=== PATIENT | male | born 1995 | race Two or more races ===

== ENCOUNTER 2019-03-20 21:30 | Inpatient (IN) | payer MEDICAID ==
[~2019-03-20] VITALS: Ht 182.9 cm; Wt 97.7 kg
[2019-03-20 21:30] VITALS: BP 136/74
--- NOTE | 2019-03-20 21:41 | Emergency Room Report ---
History of Present Illness General Chief Complaint: Overdose Source: EMS Present Illness HPI Patient is a 24-year-old male brought in by paramedics after increased altered mental status. Patient had reportedly been using crystal meth earlier in the day. He had additionally take an unknown amount of Zyprexa. Patient had reportedly had a bottle of Zyprexa which was now empty. This had been filled approximately 1 month ago. Per patient's mom patient had been noncompliant with this medication. Allergies: Coded Allergies: No Known Allergies (Unverified , 03/20/19) Nursing Documentation-[facility] History Of Psychiatric Problem: Yes Review of Systems All Other Systems: limited - Limited by altered mental status Physical Exam Vital Signs Date Time Temp Pulse Resp B/P (MAP) Pulse Ox O2 Delivery O2 Flow Rate FiO2 03/20/19 21:23 99.0 120 18 136/74 (94) 98 Room Air Sp02 EP Interpretation: reviewed, normal General Appearance: normal inspection, obese, other - Somnolent Head: atraumatic Eyes: bilateral eye PERRL ENT: other - Gag reflex present Neck: normal inspection, full range of motion, supple, no bony tend Respiratory: normal inspection, lungs clear, normal breath sounds, no respiratory distress, no retraction, no wheezing Cardiovascular #1: regular rate, rhythm, no edema Gastrointestinal: normal inspection, normal bowel sounds, non tender, soft, no guarding, no hernia Genitourinary: no CVA tenderness Musculoskeletal: normal inspection, back normal, normal range of motion Neurologic: motor weakness, speech normal, normal inspection Psychiatric: normal inspection, judgement/insight normal, mood/affect normal Medical Decision Making Diagnostic Impression: Primary Impression: Drug overdose ER Course Patient presented for altered mental status. Differential diagnosis include was not limited to overdose, CVA, intracranial hemorrhage among others. Because of complexity of patient's case laboratory tests and imaging studies were ordered. Patient was noted to have some history consistent with Overdose. Patient's urine direction was positive for amphetamine as well as marijuana. Patient appears to be able to protect his own airway at this time. Poison control was contacted.Patient's aspirin and Tylenol levels were negative. Patient was observed in the emergency department was not noted to have any evidence of hypotension after IV fluids. He continues to be somewhat somnolent. CT imaging was attempted however patient continued to move during scan. Patient was not given charcoal after consultation with poison control. Dr. William Dwyer was contacted for inpatient management due to panel physician. Labs Test 03/20/19 21:45 03/21/19 00:10 White Blood Count 7.8 K/UL (4.8-10.8) Red Blood Count 5.03 M/UL (4.70-6.10) Hemoglobin 14.7 G/DL (14.2-18.0) Hematocrit 41.3 % (42.0-52.0) Mean Corpuscular Volume 82 FL (80-99) Mean Corpuscular Hemoglobin 29.2 PG (27.0-31.0) Mean Corpuscular Hemoglobin Concent 35.6 G/DL (32.0-36.0) Red Cell Distribution Width 11.1 % (11.6-14.8) Platelet Count 273 K/UL (150-450) Mean Platelet Volume 5.8 FL (6.5-10.1) Neutrophils (%) (Auto) 56.7 % (45.0-75.0) Lymphocytes (%) (Auto) 31.1 % (20.0-45.0) Monocytes (%) (Auto) 9.0 % (1.0-10.0) Eosinophils (%) (Auto) 2.4 % (0.0-3.0) Basophils (%) (Auto) 0.8 % (0.0-2.0) Sodium Level 139 MMOL/L (136-145) Potassium Level 3.7 MMOL/L (3.5-5.1) Chloride Level 102 MMOL/L (98-107) Carbon Dioxide Level 27 MMOL/L (21-32) Anion Gap 10 mmol/L (5-15) Blood Urea Nitrogen 28 mg/dL (7-18) Creatinine 1.1 MG/DL (0.55-1.30) Estimat Glomerular Filtration Rate > 60 mL/min (>60) Glucose Level 114 MG/DL (74-106) Calcium Level 9.5 MG/DL (8.5-10.1) Total Bilirubin 1.1 MG/DL (0.2-1.0) Direct Bilirubin 0.2 MG/DL (0.0-0.3) Aspartate Amino Transf (AST/SGOT) 29 U/L (15-37) Alanine Aminotransferase (ALT/SGPT) 42 U/L (12-78) Alkaline Phosphatase 80 U/L (46-116) Troponin I 0.000 ng/mL (0.000-0.056) Total Protein 8.0 G/DL (6.4-8.2) Albumin 4.2 G/DL (3.4-5.0) Globulin 3.8 g/dL Albumin/Globulin Ratio 1.1 (1.0-2.7) Thyroid Stimulating Hormone (TSH) 3.149 uiU/mL (0.358-3.740) Salicylates Level 1.1 ug/mL (2.8-20) Acetaminophen Level < 2 MCG/ML (10-30) Serum Alcohol < 3 mg/dL Urine Color Yellow Urine Appearance Clear Urine pH 5 (4.5-8.0) Urine Specific [place] 1.015 (1.005-1.035) Urine Protein Negative (NEGATIVE) Urine Glucose (UA) Negative (NEGATIVE) Urine Ketones 2+ (NEGATIVE) Urine Blood 2+ (NEGATIVE) Urine Nitrite Negative (NEGATIVE) Urine Bilirubin Negative (NEGATIVE) Urine Urobilinogen 1 MG/DL (0.0-1.0) Urine Leukocyte Esterase Negative (NEGATIVE) Urine RBC 0-2 /HPF (0 - 0) Urine WBC 0 /HPF (0 - 0) Urine Squamous Epithelial Cells None /LPF (NONE/OCC) Urine Bacteria None /HPF (NONE) Urine Opiates Screen Negative (NEGATIVE) Urine Barbiturates Screen Negative (NEGATIVE) Phencyclidine (PCP) Screen Negative (NEGATIVE) Urine Amphetamines Screen Positive (NEGATIVE) Urine Benzodiazepines Screen Negative (NEGATIVE) Urine Cocaine Screen Negative (NEGATIVE) Urine Marijuana (THC) Screen Positive (NEGATIVE) EKG Diagnostic Results Rate: normal Rhythm: NSR - 481 ST Segments: no acute changes Rhythm Strip Diag. Results EP Interpretation: yes Rhythm: NSR, no PVC's, no ectopy Last Vital Signs Date Time Temp Pulse Resp B/P (MAP) Pulse Ox O2 Delivery O2 Flow Rate FiO2 03/20/19 21:23 99.0 120 18 136/74 (94) 98 Room Air Status: unchanged Disposition: ADMITTED INPATIENT Condition: Serious Sammy Kincaid MD Mar 20, 2019 21:41
--- NOTE | 2019-03-20 21:45 | NUR ---
ER Nurse Note: Pt brought in by ambulance from home c/o taking unk amount of Zyprexa and meth earlier today. Per EMS, pt had a new prescription on 02/26 and a full bottle of Zyprexa and only took 2 tabs as scheduled. 03/20 pt took Zyprexa and was found with an empty bottle. Pt is unable to communicate, pinpoint pupils. Skin intact, no discoloration. HR 125 otherwise VSS. Pt arrived wtih IV on LT FA 16 gauge established by EMS; patent. Airway patent. Will continue to montior.
[2019-03-20 22:24] LABS: BASOPHILS % (AUTO) 0.8 % (0.0-2.0); EOSINOPHILS % (AUTO) 2.4 % (0.0-3.0); HEMATOCRIT 41.3 % (42.0-52.0); HEMOGLOBIN 14.7 G/DL (14.2-18.0); LYMPHOCYTES % (AUTO) 31.1 % (20.0-45.0); MEAN CORPUSCULAR VOLUME 82 FL (80-99); NEUTROPHILS % (AUTO) 56.7 % (45.0-75.0); PLATELET COUNT 273 K/UL (150-450); RED BLOOD COUNT 5.03 M/UL (4.70-6.10); RED CELL DISTRIBUTION WIDTH 11.1 % (11.6-14.8); WHITE BLOOD COUNT 7.8 K/UL (4.8-10.8)
[2019-03-20 22:44] LABS: ANION GAP 10 mmol/L (5-15); BLOOD UREA NITROGEN 28 mg/dL (7-18); CALCIUM 9.5 MG/DL (8.5-10.1); CARBON DIOXIDE 27 MMOL/L (21-32); CHLORIDE 102 MMOL/L (98-107); CREATININE 1.1 MG/DL (0.55-1.30); POTASSIUM 3.7 MMOL/L (3.5-5.1); SODIUM 139 MMOL/L (136-145)
[2019-03-20 22:58] LABS: ALANINE AMINOTRANSFERASE 42 U/L (12-78); ALBUMIN 4.2 G/DL (3.4-5.0); ALBUMIN/GLOBULIN RATIO 1.1 (1.0-2.7); ALKALINE PHOSPHATASE 80 U/L (46-116); ASPARTATE AMINO TRANSFERASE 29 U/L (15-37); BILIRUBIN,TOTAL 1.1 MG/DL (0.2-1.0)
[2019-03-20 23:00] LABS: BILIRUBIN,DIRECT 0.2 MG/DL (0.0-0.3)
--- NOTE | 2019-03-20 23:30 | NUR ---
ER Nurse Note: All orders completed per ERMD orders. Awaiting further orders. All safety measures met; will continue to monitor.
[2019-03-21] VITALS (8 sets, daily range): BP systolic 108–140; BP diastolic 55–72
[2019-03-21 00:37] LABS: APPEARANCE,URINE CLEAR; BILIRUBIN, URINE NEGATIVE (NEGATIVE); GLUCOSE, URINE (UA) NEGATIVE (NEGATIVE); KETONES,URINE 2+ (NEGATIVE); LEUKOCYTE ESTERASE ,URINE NEGATIVE (NEGATIVE); NITRITE,URINE NEGATIVE (NEGATIVE); PH,URINE 5 (4.5-8.0); PROTEIN,URINE NEGATIVE (NEGATIVE); UROBILINOGEN,URINE 1 MG/DL (0.0-1.0)
[2019-03-21 00:38] LABS: COLOR,URINE YELLOW
--- NOTE | 2019-03-21 00:52 | NUR ---
ER Nurse Note: Pt calm, asleep, VSS, RA, stable. Pt chest rise and fall noted, no signs of resp distress. Pt in bed. SLIV LT FA and R AC; patent. Mom at bedside and aware of admission. All safety measures met; will continue to montior.
--- NOTE | 2019-03-21 01:07 | NUR ---
ER Nurse Note: Pt taken to radiology; CT head to be taken.
--- NOTE | 2019-03-21 01:45 | NUR ---
ER Nurse Note: Pt back from CT, awaiting results. Pt asleep, non verbal, responds to pain. SLIV LT FA and RT AC; patent. VSS, RA, no signs of resp distress. All safety measures met; will continue to monitor.
[2019-03-21] MEDS ORDERED: D5NS 1,000 ML IV SCH (02:00)
--- NOTE | 2019-03-21 03:54 | NUR ---
ER Nurse Note: Pt transfered on Zeus bed. Pt condition remains the same. Pt infusing fluids. VSS, RA. Bed in lowest position. No discoloration, O2 >95% RA. Labs drawn and sent to lab. All safety measures met; will conitnue to sundar.
[2019-03-21 04:34] LABS: BASOPHILS % (AUTO) 0.8 % (0.0-2.0); EOSINOPHILS % (AUTO) 4.2 % (0.0-3.0); HEMATOCRIT 39.7 % (42.0-52.0); HEMOGLOBIN 13.4 G/DL (14.2-18.0); LYMPHOCYTES % (AUTO) 31.3 % (20.0-45.0); MEAN CORPUSCULAR VOLUME 84 FL (80-99); MONOCYTES % (AUTO) 10.8 % (1.0-10.0); NEUTROPHILS % (AUTO) 52.9 % (45.0-75.0); PLATELET COUNT 272 K/UL (150-450); RED BLOOD COUNT 4.71 M/UL (4.70-6.10); RED CELL DISTRIBUTION WIDTH 12.4 % (11.6-14.8); WHITE BLOOD COUNT 5.8 K/UL (4.8-10.8)
[2019-03-21 04:52] LABS: ANION GAP 6 mmol/L (5-15); BLOOD UREA NITROGEN 21 mg/dL (7-18); CALCIUM 9.2 MG/DL (8.5-10.1); CARBON DIOXIDE 29 MMOL/L (21-32); CHLORIDE 107 MMOL/L (98-107); POTASSIUM 3.8 MMOL/L (3.5-5.1); SODIUM 142 MMOL/L (136-145)
[2019-03-21 04:57] LABS: ALANINE AMINOTRANSFERASE 36 U/L (12-78); ALBUMIN 3.8 G/DL (3.4-5.0); ALBUMIN/GLOBULIN RATIO 1.1 (1.0-2.7); ALKALINE PHOSPHATASE 71 U/L (46-116); ASPARTATE AMINO TRANSFERASE 21 U/L (15-37)
--- NOTE | 2019-03-21 06:53 | NUR ---
ER Nurse Note: Pt asleep, VSS, no signs of distress, RA. Chest rise and fall noted. No discoloration noted. Sluggish pupils. All safety measures met; will endorse to oncoming shift for continutiy of care. Contact information - Malia Larose (mom), . Mom would want to be informed in the process.
[2019-03-21] MEDS ORDERED: UNOBMED (07:14)
--- NOTE | 2019-03-21 07:25 | NUR ---
ED Nurse Note: received patient in bed, patient on a vehicle monitor technician, a/o x0 at this time, stupor. pupil sluggish, pinpoint. patient's IV on the right AC patent, infusing IVF as ordered without complication.
--- NOTE | 2019-03-21 08:10 | NUR ---
ED Nurse Note: patient transferred to SDU without complication on ACLS protocol, endorsed all plan of care to MELVIN MITCHELL.
--- NOTE | 2019-03-21 08:26 | NUR ---
NURSE NOTES: Pt arrived to unit, no orientation, IV intact and patent, no fluids ordered, called Md for sitter. Vitals WNL. Addendum: 03/21/19 at 0906 by MELVIN ROBISON RN Called Md for admitting orders
--- NOTE | 2019-03-21 09:20 | NUR ---
NURSE NOTES: Pt confused and walking unsteady to restroom. initiated a sitter for safety. called
--- NOTE | 2019-03-21 09:26 | NUR ---
NURSE NOTES: Pt is very confused and continues to get out of bed, pt very confused, at times can be combative. pt is still unsteady.
--- NOTE | 2019-03-21 12:17 | NUR ---
NURSE NOTES: Called Md Dwyer and left message with vat house supervisor
--- NOTE | 2019-03-21 12:38 | Cardiology Report ---
APPROVED REPORT EKG Measurement Heart [id number] Normal sinus rhythm Normal ECG
[2019-03-21] MEDS: D5NS 1,000 ML IV SCH ×2 (13:18→19:51)
--- NOTE | 2019-03-21 13:47 | Diagnostic Imaging Report ---
Indication: Altered mental status Technique: Continuous helical CT scanning of the head was performed without intravenous contrast material. Axial and coronal 5 mm sections were generated. Radiation dose was minimized using automated exposure control Dose: Total Dose Length Product - DLP 1304.[address] Dose Index - CTDIvol(s) 60 mGy. Comparison: None FINDINGS: There is no acute intracranial hemorrhage, mass effect or cortical edema. No shift of midline structures. The differentiation appears preserved. Empty sella suggested. The ventricles, cisterns and sulci are normal for age. Visualized mastoid air cells and paranasal sinuses are unremarkable. No focal lesions of the bony calvarium or soft tissues of the scalp are seen. IMPRESSION: No evidence of acute intracranial hemorrhage, mass effect or cortical edema. MRI may be obtained for more sensitive evaluation as clinically indicated. The CT scanner at [facility] is accredited by the [employer] and the scans are performed using protocols designed to limit radiation exposure to as low as reasonably achievable to attain images of sufficient resolution adequate for diagnostic evaluation.
--- NOTE | 2019-03-21 19:20 | NUR ---
NURSE NOTES: Received patient from PAULA Castano. Will continue plan of care.
--- NOTE | 2019-03-21 19:27 | NUR ---
HAND-OFF: Report given to Addie Baird.
[2019-03-22] VITALS: BP 125/50
[2019-03-22] MEDS: D5NS 1,000 ML IV SCH ×3 (02:11→15:48)
[2019-03-22 04:00] VITALS: BP 118/53
--- NOTE | 2019-03-22 07:20 | NUR ---
HAND-OFF: Report given to PAULA Lr.
[2019-03-22 08:00] VITALS: BP 109/56
[2019-03-22] MEDS ORDERED: Heparin 5000 units/ml inj SUBQ SCH (09:00)
[2019-03-22 11:53] VITALS: BP 131/74
--- NOTE | 2019-03-22 13:03 | NUR ---
Social Work This SW received notification regarding substance abuse. This SW met with patient (along with his mother and aunt currently at bedside). Patient resides with his mother (currently unemployed, while mother supports him financially). Patient admitted to substance abuse (Meth), while denied any suicidal/homicidal ideations, nor any other mental health concerns, i.e auditory/visual hallucinations. Patient admits to a history of ADHD and depression, but has not been taking any of his medications. Pending Psych consult with Dr. Ford. Mother reports patient was recently discharged from a substance abuse program ([facility]) and was being seen by psychiatry there. Mother believes patient has been "self medicating" with drug abuse "for his ADHD." Patients father had a known history of substance abuse (alcohol) as well. This SW provided brief education regarding possible ideology of the disease, while encouraging further support and follow up treatment, with the motivation from the patient for change. Patient does not appear to express motivation for change at this time, stating that his mother is "part of the problem," stating "she does not listen to me." This SW provided brief counseling/support and encouraged both parent and patient to get further counseling (resources provided). Mother reported she has additional resources at home from patients previous relapse, has been using off and on since age 18. 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 Mother stating agreement with patient discharging back to her home, until employment and other living arrangements can be made. This SW recommended halfway/sober living homes as well.
--- NOTE | 2019-03-22 14:41 | NUR ---
CASE MANAGEMENT:REVIEW 24 YR OLD MALE BIBShirin FROM HOME CC; OVERDOSE SI: ZYPREXA OVERDOSE 99.0 120 18 136/74 98% ON RA URINE(+) AMPHETAMINES AND THC IS: 500CC NS BOLUS 1L NS BOLUS : TO TELEMETRY INTERQUAL CRITERIA MET
[2019-03-22 16:00] VITALS: BP 123/67
[2019-03-22] MEDS ORDERED: D5NS 1000ml IV ONE (16:14)
--- NOTE | 2019-03-23 00:30 | Consultation ---
DATE OF CONSULTATION: 03/22/2019 CONSULTING PHYSICIAN: Richard Ford M.D. HISTORY OF PRESENT ILLNESS: The patient is a 24-year-old male with a history of psychiatric disorder, who has been admitted to the hospital after he had a bottle of Zyprexa. He is denying taking the whole bottle and stated that he took several dosage. He has a history of methamphetamine use and psychosis. He denies having history of schizophrenia. He has been to a psych hospital before due to psychotic disorder, most likely due to methamphetamine. He stated that he does not have any psychiatric history and would like to be discharged. He does not endorse any suicidal ideation. Denied being suicidal and stated that he wants to be picked up by his mother or his aunt. The patient was calm and observed over the past two days. The patient is not endorsing any suicidal or homicidal ideation, calm and cooperative with the staff. The patient was also seen by the social psychologist. The patient resides at his mother's place, unemployed, addicted to methamphetamines. Mother is supporting him financially. The patient stating he uses methamphetamine due to ADHD. The patient is not endorsing any auditory or visual hallucinations. PAST PSYCHIATRIST HISTORY: As above. ALLERGIES: No known drug allergies. SUBSTANCE USE HISTORY: Crystal methamphetamine. MENTAL STATUS EXAMINATION: Alert and oriented times to self, place, and situation. Mood is dysphoric. Affect is constricted, congruent with mood. Thought process is concrete. Thought content, no suicidal or homicidal ideation. Cognition is intact. Insight and judgment is poor. ASSESSMENT: AXIS I: Methamphetamine dependence. Major depressive disorder. Methamphetamine-induced psychosis. AXIS II: Deferred. AXIS III: As above. AXIS IV: Low. AXIS V: 50. PLAN: The patient will be discharged with a followup plan with a psychiatrist for substance use disorder. Richard Ford M.D. DR: SIN JOB#: [id number] CC:
--- NOTE | 2019-03-24 10:23 | Discharge Summary ---
Discharge Summary Discharge Summary _ DATE OF ADMISSION: 03/21/2019 DATE OF DISCHARGE: 03/22/2019 DISCHARGED BY: Dr. William Dwyer CONSULTANTS: Dr. Richard Ford BRIEF HOSPITAL COURSE: Patient is a 24-year-old male who was brought in by paramedics due to altered mental status. Reported use of crystal meth earlier in the day. He also took unknown amount of Zyprexa. Patient has been noncompliant with medication. On arrival to ED, blood pressure was stable. Heart rate was 120. Blood work did not show any leukocytosis. Urine toxicology was positive for amphetamine and marijuana. Poison control was contacted at ED. Aspirin and Tylenol levels were negative. He was given IV hydration. Head CT did not show any evidence of intracranial hemorrhage, mass-effect or edema. Psychiatric evaluation was done. Patient denied being suicidal. He did not endorse any suicidal ideation. He was cleared by psychiatrist. [facility] social work faculty member was consulted. Community resources were provided. Patient was discharged home. FINAL DIAGNOSES: Drug overdose Methamphetamine dependence Major depressive disorder Methamphetamine induced psychosis DISPOSITION: Patient was discharged home. DISCHARGE MEDICATIONS: Continue home meds. DISCHARGE INSTRUCTIONS: Follow-up with PCP in a week. I have been assigned to complete a discharge summary on this account, I was not involved with the patient's management.--KIM Herrmann Jacqueline Robles NP Mar 24, 2019 10:23
--- NOTE | 2019-03-25 17:00 | History and Physical Report ---
DATE OF ADMISSION: 03/21/2019 REASON FOR ADMISSION: Overdose. HISTORY OF PRESENT ILLNESS: This is a 24-year-old male who was noted to be withdrawn, altered, and confused. He apparently was using crystal meth earlier in the day and later took about 20 pills of Zyprexa. The patient's mother notes that he has been noncompliant with his medication on a regular basis. In the emergency room, he was somnolent and initially hypotensive, but responded to IV fluids. PAST MEDICAL HISTORY: Otherwise unremarkable. ALLERGIES: None known. SOCIAL HISTORY: smoking or alcohol abuse history. PHYSICAL EXAMINATION: VITAL SIGNS: Blood pressure 136/74, pulse 120, respirations 18, and temperature 99. HEENT: Pupils are reactive. Oropharynx clear. NECK: Supple. LUNGS: Clear. CARDIAC: Regular. Normal S1, S2. ABDOMEN: Soft. EXTREMITIES: No edema. NEUROLOGIC: The patient is somnolent. LABORATORY DATA: White count 7.8, hemoglobin 14.7. Troponin negative. TSH 3.1. Urinalysis is negative. Drug screen is positive for marijuana and amphetamine. IMPRESSION: 1. Zyprexa overdose. 2. Crystal meth use. PLAN: 1. Monitor respiratory parameters. 2. IV fluid hydration. 3. Aspiration precautions. 4. Cardiac monitoring. 5. Psychiatric consultation once the patient is alert. William Dwyer M.D. DR: HARINDER JOB#: [id number] CC:
== END 2019-03-22 16:15 | disposition home or self-care (01) | DRG 812 ==
LOC: EDBD 21:30 → EMR 23:00 → 2W 03-21 00:14 → EDBEDREQ 03-21 01:47
DX: T43.591A Poisoning by other antipsychotics and neuroleptics, accidental (unintentional), initial encounter (principal); R41.82 Altered mental status, unspecified; F32.9 Major depressive disorder, single episode, unspecified; F15.259 Other stimulant dependence with stimulant-induced psychotic disorder, unspecified; Z91.14 Patient's other noncompliance with medication regimen
CPT/HCPCS: 36415; 36600; 70450; 80053; 80307; 81003; 82248; 82803; 83735; 84443; 84484; 85025; 93005; 96360; 96361; 99285; G0480; J7030